=== PATIENT | male | born 1970 | race Caucasian/White ===

== ENCOUNTER → 2023-02-03 17:32 | Outpatient (BNVA) | payer SELFPAY | PROVIDERS: Family Provider Nurse Practitioner Family; PCP Nurse Practitioner Family; Visit Provider Nurse Practitioner Family | DX: S52.532A Colles' fracture of left radius, initial encounter for closed fracture (principal); V89.9XXA Person injured in unspecified vehicle accident, initial encounter; Y99.0 Civilian activity done for income or pay | CPT/HCPCS: 73110 ==